=== PATIENT | male | born 1945 | race Caucasian/White ===

== ENCOUNTER 2019-03-08 12:16 | Inpatient (IN) | payer MEDICARE, OTHER ==
[~2019-03-08] VITALS: Ht 180.3 cm; Wt 83.2 kg
[~2019-03-08 12:16] MED LIST: MULT-26 PO; [UNRECOGNIZED DRUG - CODE] PO
--- NOTE | 2019-03-08 12:53 | NUR ---
Pt to room from lobby.
--- NOTE | 2019-03-08 12:56 | NUR ---
Pt in xray at this time.
[2019-03-08 13:05] LABS: BASOPHILS # (AUTO) 0.02 x10^3/uL (0-0.1); BASOPHILS % (AUTO) 0 % (0-1); EOSINOPHILS # (AUTO) 0.09 x10^3/uL (0-0.4); EOSINOPHILS % (AUTO) 1 % (1-7); LYMPHOCYTES # (AUTO) 1.38 x10^3/uL (1-3.4); LYMPHOCYTES % (AUTO) 20 % (22-44); MD NO; MEAN CORPUSCULAR HEMOGLOBIN 33.8 pg (27.5-34.5); MEAN CORPUSCULAR HGB CONC 33.5 g/dL (33.2-36.2); MEAN CORPUSCULAR VOLUME 101.1 fL (81-97); MEAN PLATELET VOLUME 7.9 fL (7.4-10.4); MONOCYTES # (AUTO) 0.67 x10^3/uL (0.2-0.8); MONOCYTES % (AUTO) 10 % (2-9); NEUTROPHILS # (AUTO) 4.66 x10^3/uL (1.8-6.8); NEUTROPHILS % (AUTO) 68 % (42-75); PLATELET COUNT 264 x10^3/uL (130-400); RED BLOOD COUNT 4.58 x10^6/uL (4.38-5.82); RED CELL DISTRIBUTION WIDTH 12.7 % (9.4-14.8)
[2019-03-08 13:13] LABS: ALBUMIN 3.9 g/dL (3.4-5.0); ANION GAP 4 mmol/L (5-15); CALCIUM 9.4 mg/dL (8.5-10.1); CHLORIDE 107 mmol/L (98-107); CREATININE 1.84 mg/dL (0.7-1.3)
[2019-03-08] MEDS ORDERED: ATOR10TA9 PO (13:13)
[2019-03-08] MEDS ORDERED: LEVO75TA5 PO (13:13)
[2019-03-08 13:17] LABS: TROPONIN I < 0.015 ng/mL (0.000-0.045)
--- NOTE | 2019-03-08 13:56 | NUR ---
RECEIVED REPORT FROM CARLOS RENTERIA, LUCRETIA OF CARE DISCUSSED.
--- NOTE | 2019-03-08 14:00 | NUR ---
Report to Duncan RENTERIA.
[2019-03-08] MEDS ORDERED: SODIUM CHLORIDE 0.9% 1,000ML IVBOLUS ONE (14:30)
--- NOTE | 2019-03-08 15:19 | NUR ---
PT RESTING, VERBALIZED NO NEEDS AT THIS TIME.
[2019-03-08] MEDS ORDERED: HEPARIN 5,000 UNITS/ML, 1ML ONE (16:06)
[2019-03-08] MEDS ORDERED: HEPARIN 25,000 UNITS/500ML PMX 500 ML ONE (16:06)
--- NOTE | 2019-03-08 16:27 | NUR ---
STARTED HEPARIN PER ORDERS, PT VERBALZIED UNDERSTANDING ADMIT TO CARDIAC TELE. ORDERED MEAL FOR PATIENT.
[2019-03-08] MEDS ORDERED: HEPARIN 5,000 UNITS/ML, 1ML IV ONE (16:30)
[2019-03-08] MEDS ORDERED: HEPARIN 25,000 UNITS/500ML PMX 500 ML IV PRN ×2 (16:30→19:30)
[2019-03-08] MEDS ORDERED: HEPARIN 5,000 UNITS/ML, 1ML IV PRN (16:30)
[2019-03-08] MEDS ORDERED: hydrALAzine 20 MG/ML, 1ML IVPush PRN (17:30)
[2019-03-08] MEDS ORDERED: ACETAMINOPHEN 325 MG TABLET PO PRN (17:30)
[2019-03-08] MEDS ORDERED: GUAIFENESIN/DM 200-20MG, 10ML UDC PO PRN (17:30)
[2019-03-08] MEDS ORDERED: ONDANSETRON ODT 4 MG PO PRN (17:30)
[2019-03-08] MEDS ORDERED: DOCUSATE 100 MG CAPSULE PO PRN (17:30)
[2019-03-08] MEDS ORDERED: LIDODERM 5% PATCH TD PRN (17:30)
--- NOTE | 2019-03-08 17:35 | NUR ---
MEAL PROVIDED TO PATIENT. PT VERBALIZED NO NEEDS AT THIS TIME.
--- NOTE | 2019-03-08 17:42 | NUR ---
REPORT TO ANKIT RENTERIA, PLAN OF CARE DISCUSSED.
[2019-03-08 18:01] LABS: FREE T4 (FREE THYROXINE) 1.02 ng/dL (0.76-1.46); TROPONIN I < 0.015 ng/mL (0.000-0.045)
[2019-03-08 18:13] LABS: HEMOGLOBIN A1C 5.5 % (4.2-6.3)
[2019-03-08 19:30] VITALS: BP 123/75
[2019-03-08] MEDS: SODIUM CHLORIDE 0.9% 1,000 ML IV SCH (22:40)
[2019-03-08] MEDS ORDERED: ATORVASTATIN 10 MG TABLET PO SCH (23:00)
[2019-03-08] MEDS ORDERED: LEVO50TA5 PO (23:06)
[2019-03-08 23:36] LABS: TROPONIN I < 0.015 ng/mL (0.000-0.045)
[2019-03-09 00:58] VITALS: BP 104/65
[2019-03-09 00:58] LABS: MICROSCOPIC NOT IND
[2019-03-09 01:00] LABS: CULTURE INDICATED? NO
[2019-03-09] MEDS ORDERED: LEVOTHYROXINE 50 MCG TABLET PO SCH (06:00)
[2019-03-09] MEDS: SODIUM CHLORIDE 0.9% 1,000 ML IV SCH (06:01)
[2019-03-09 06:39] LABS: BASOPHILS # (AUTO) 0.02 x10^3/uL (0-0.1); BASOPHILS % (AUTO) 0 % (0-1); EOSINOPHILS # (AUTO) 0.13 x10^3/uL (0-0.4); EOSINOPHILS % (AUTO) 2 % (1-7); LYMPHOCYTES # (AUTO) 1.22 x10^3/uL (1-3.4); LYMPHOCYTES % (AUTO) 22 % (22-44); MD NO; MEAN CORPUSCULAR HEMOGLOBIN 33.4 pg (27.5-34.5); MEAN CORPUSCULAR HGB CONC 32.8 g/dL (33.2-36.2); MEAN CORPUSCULAR VOLUME 101.8 fL (81-97); MEAN PLATELET VOLUME 7.9 fL (7.4-10.4); MONOCYTES # (AUTO) 0.48 x10^3/uL (0.2-0.8); MONOCYTES % (AUTO) 9 % (2-9); NEUTROPHILS # (AUTO) 3.76 x10^3/uL (1.8-6.8); NEUTROPHILS % (AUTO) 67 % (42-75); PLATELET COUNT 224 x10^3/uL (130-400); RED BLOOD COUNT 4.29 x10^6/uL (4.38-5.82); RED CELL DISTRIBUTION WIDTH 12.6 % (9.4-14.8)
[2019-03-09 06:50] LABS: ANION GAP 5 mmol/L (5-15); CALCIUM 8.6 mg/dL (8.5-10.1); CHLORIDE 112 mmol/L (98-107); CHOLESTEROL, TOTAL 196 mg/dL (140-239); CREATININE 1.51 mg/dL (0.7-1.3); TRIGLYCERIDES 119 mg/dL (50-200); VLDL CHOLESTEROL 24 mg/dL (0-25)
[2019-03-09 06:52] LABS: CHOL/HDL RATIO 3.9; HDL CHOL % 26 % (26-37); HDL CHOLESTEROL (DIRECT) 50 mg/dL (40-60); LDL CHOLESTEROL,CALCULATED 122 mg/dL (54-169); LDL/HDL RATIO 2.4 (0.5-3.0)
[2019-03-09 07:38] VITALS: BP 127/82
[2019-03-09] MEDS ORDERED: HEPARIN 25,000 UNITS/500ML PMX 500 ML IV PRN (08:00)
[2019-03-09 13:40] VITALS: BP 125/79
[2019-03-09] MEDS ORDERED: RIVA1TAB PO (14:24)
[2019-03-09] MEDS ORDERED: RIVAROXABAN 15 MG TABLET PO ONE (14:30)
== END 2019-03-09 16:27 | disposition home or self-care (01) | DRG 175 ==
LOC: ED 16:37 → EDIP 17:12 → 4WST 18:29 → DCLOUNGE 03-09 16:08
PROVIDERS: ADMIT Hospitalist; ATTEND Hospitalist
DX: I26.99 Other pulmonary embolism without acute cor pulmonale (principal); N17.0 Acute kidney failure with tubular necrosis; E03.9 Hypothyroidism, unspecified; E78.00 Pure hypercholesterolemia, unspecified; E78.5 Hyperlipidemia, unspecified; I34.0 Nonrheumatic mitral (valve) insufficiency; N18.9 Chronic kidney disease, unspecified; R09.1 Pleurisy; Z80.0 Family history of malignant neoplasm of digestive organs; Z85.828 Personal history of other malignant neoplasm of skin; Z86.711 Personal history of pulmonary embolism; Z88.5 Allergy status to narcotic agent
CPT/HCPCS: 36415; 71046; 71275; 80048; 80061; 81003; 82040; 83036; 83880; 84439; 84443; 84484; 85025; 85520; 93005; 93306; 93970; 96365; 96375; G0378; J1644; J7030